=== PATIENT | male | born 1960 | race Caucasian/White ===

== ENCOUNTER 2019-03-18 08:04 | Day surgery (SDC) | payer OTHER ==
[2019-03-15 13:46] VITALS: BMI 24.3
[2019-03-18 09:44] VITALS: TEMP 98.2
[2019-03-18 10:56] VITALS: BP 125/67; PULSE 64
--- NOTE | 2019-03-19 14:22 | PATH ---
Surgical Pathology Report Patient Name: DAWN [facility]EMAY[facility]. Rec. #: [id number] /Age/Gender: 1960 (Age: 58) / M Account: [id number] Location: [facility]-ENDOSCOPY Taken: 03/18/2019 Received: 03/18/2019 Reported: 03/19/2019 Physicians: Saman Morris M.D. Specimen(s) Received A: DUODENUM B: ANTRUM C: POLYP RECTUM D: POLYP SIGMOID Clinical History Weight loss, anemia Postoperative diagnosis: Duodenal AVM, colon polyps Final Diagnosis A. DUODENUM, SECOND PORTION AND DUODENAL BULB, BIOPSY: DUODENAL MUCOSA WITH MILD CHRONIC INFLAMMATION WITHIN LAMINA PROPRIA, MILD INTRAEPITHELIAL LYMPHOCYTOSIS, AND PRESERVED VILLOUS ARCHITECTURE. SEE COMMENT. B. STOMACH, ANTRUM, BIOPSY: GASTRIC ANTRAL MUCOSA WITH MODERATE CHRONIC GASTRITIS. IMMUNOHISTOCHEMICAL STAIN FOR H. PYLORI IS NEGATIVE. C. RECTUM, POLYP, BIOPSY: HYPERPLASTIC POLYP. D. SIGMOID COLON, POLYPS, BIOPSY: HYPERPLASTIC POLYP(S). Comment: Part A, The finding is nonspecific and may be seen in gluten sensitive enteropathy (celiac disease) and chronic duodenitis. In the presence of chronic inflammation the findings are likely related to chronic duodenitis. Serological correlations are suggested if clinically indicated. Electronically Signed Arin Chan M.D. Gross Description A. Received in formalin, labeled "biopsy duodenum second portion and bulb" are 3 [place], irregular portions of soft tissue ranging from 0.3-0.5 cm. in greatest dimension. The specimens are submitted in toto in one cassette. B. Received in formalin, labeled "biopsy antrum" are 4 val[place], irregular portions of soft tissue ranging from 0.3-0.5 cm. in greatest dimension. The specimens are submitted in toto in one cassette. C. Received in formalin, labeled "polyp rectum" are 2 valdiv[place], irregular portions of soft tissue averaging 0.2 cm. in greatest dimension. The specimens are submitted in toto in one cassette. D. Received in formalin, labeled "polyp sigmoid" are 5 valdiv[place], irregular portions of soft tissue ranging from 0.2-0.4 cm. in greatest dimension. The specimens are submitted in toto in one cassette. 03/18/201903/18/2019
== END 2019-03-18 12:24 | disposition home or self-care (01) ==
LOC: JASU-ENDO 08:04
PROVIDERS: ATTEND Internal Medicine Gastroenterology
PROC: 0DBN8ZX Excision of Sigmoid Colon, Via Natural or Artificial Opening Endoscopic, Diagnostic (ICD-10-PCS; 2019-03-18)
PROC: 0DB98ZX Excision of Duodenum, Via Natural or Artificial Opening Endoscopic, Diagnostic (ICD-10-PCS; 2019-03-18)
PROC: 0DB68ZX Excision of Stomach, Via Natural or Artificial Opening Endoscopic, Diagnostic (ICD-10-PCS; 2019-03-18)
PROC: 0DBP8ZX Excision of Rectum, Via Natural or Artificial Opening Endoscopic, Diagnostic (ICD-10-PCS; principal; 2019-03-18 08:00)
DX: Z12.11 Encounter for screening for malignant neoplasm of colon (principal); K62.1 Rectal polyp; D12.5 Benign neoplasm of sigmoid colon; K64.8 Other hemorrhoids; R63.4 Abnormal weight loss; D64.9 Anemia, unspecified; K31.819 Angiodysplasia of stomach and duodenum without bleeding; K29.80 Duodenitis without bleeding; K29.50 Unspecified chronic gastritis without bleeding
CPT/HCPCS: 88305-TC; 88342-TC